=== PATIENT | female | born 1945 | race Caucasian/White ===

== ENCOUNTER → 2024-09-08 | Outpatient (CLI) | payer MEDICARE, BC, SELFPAY ==
--- NOTE | 2024-09-08 11:42 | EKG_ITS ---
[facility] Test Date: 2024-09-08 Pat Name: JOSSELYN MARSHALL Department: Room: - Gender: Female Assistant Restaurant General Manager: RTSJC : 1945 Requested By: Freddy Ahmadi Order Number: [id number] Reading MD: Freddy Ahmadi Measurements Intervals [place] Rate: 69 P: 112 AK: 198 QRS: -32 QRSD: 104 T: 71 QT: 360 QTc: 388 Interpretive Statements ELECTRONIC ATRIAL PACEMAKER MARKED LEFT AXIS DEVIATION LOW QRS VOLTAGE IN PRECORDIAL LEADS VOLTAGE CRITERIA FOR LVH NONSPECIFIC T-WAVE ABNORMALITY Compared to ECG 03/11/2024 16:49:55 Left-axis deviation now present Low QRS voltage now present Left ventricular hypertrophy now present T-wave abnormality now present Ventricular-paced complex(es) or rhythm no longer present /store/S0/[id number]/ecg/[id number].pdf
== END | disposition home or self-care (01) ==
LOC: COPL 10:35
PROVIDERS: PCP Family Medicine; Referring Provider Student in an Organized Health Care Education/Training Program; Visit Provider Student in an Organized Health Care Education/Training Program
DX: Z01.818 Encounter for other preprocedural examination (principal); H25.812 Combined forms of age-related cataract, left eye
CPT/HCPCS: 82947; 93005

== ENCOUNTER → 2024-09-09 | Outpatient (CLI) | payer MEDICARE, BC, SELFPAY ==
[2024-09-09 09:28] LABS: Glucose,Fasting 101 mg/dL (74-106)
== END | disposition home or self-care (01) ==
LOC: COPL 08:35
PROVIDERS: PCP Family Medicine; Referring Provider Student in an Organized Health Care Education/Training Program; Visit Provider Student in an Organized Health Care Education/Training Program
DX: Z01.818 Encounter for other preprocedural examination (principal); H25.812 Combined forms of age-related cataract, left eye
CPT/HCPCS: 36415; 82947

== ENCOUNTER → 2024-09-22 | Outpatient (CLI) | payer MEDICARE, BC, SELFPAY ==
--- NOTE | 2024-09-22 09:45 | XR_ITS ---
Examination: Bilateral hips, AP pelvis, 5 views Technique: AP, lateral views both hips, AP pelvis, 5 views Exam date and time: September 22, 2024 0953 hrs. Indications: Right hip pain beginning 3 weeks ago Findings: Moderate osteopenia No right hip fracture or hip dislocation Bilateral moderate narrowing hip joints Bones of the pelvis intact Impression: Bilateral moderate hip osteoarthritis Incidental note advanced degenerative disc disease L3-L4, L4-L5, L5-S1
== END | disposition home or self-care (01) ==
PROVIDERS: PCP Nurse Practitioner Family; Referring Provider Physician Assistant; Visit Provider Physician Assistant
DX: M16.0 Bilateral primary osteoarthritis of hip (principal); M51.369 Other intervertebral disc degeneration, lumbar region without mention of lumbar back pain or lower extremity pain; M51.379 Other intervertebral disc degeneration, lumbosacral region without mention of lumbar back pain or lower extremity pain
CPT/HCPCS: 73523

== ENCOUNTER → 2024-10-16 | Outpatient (CLI) | payer MEDICARE, BC, SELFPAY ==
[2024-10-16 10:09] LABS: Collection Type, Urine Clean Catch
[2024-10-16 10:32] LABS: Basophils % (Auto) 1 % (0-2.5); Eosinophils # (Auto) 0.1 Thou/mm3 (0.0-0.5); Eosinophils % (Auto) 2 % (0-10); Hematocrit 45.1 % (36.0-46.0); Hemoglobin 14.8 g/dL (12.0-16.0); Immature Granulocytes % (Auto) 0 % (0-0); Immature Granulocytes Auto 0.01 Thou/mm3 (0.00-0.00); Lymphocytes # (Auto) 0.9 Thou/mm3 (1.0-4.8); Lymphocytes % (Auto) 20 % (10-50); Mean Corpuscular HGB Conc 32.8 g/dl (31.0-37.0); Mean Corpuscular Hemoglobin 29.5 pg (25.0-35.0); Mean Corpuscular Volume 90 fL (80-100); Monocytes # (Auto) 0.4 Thou/mm3 (0.0-0.8); Monocytes % (Auto) 9 % (0-12); Neutrophils # (Auto) 3.2 Thou/mm3 (1.8-7.7); Neutrophils % (Auto) 69 % (37-80); Nucleated Red Blood Cell % 0 /100 WBC (0); Platelet Count 182 Thou/mm3 (140-440); RDW Standard Deviation 47.7 fL (36.4-46.3); Red Blood Count 5.02 Miln/mm3 (4.00-5.20); White Blood Count 4.6 Thou/mm3 (3.6-11.0)
[2024-10-16 10:44] LABS: Bilirubin,Urine Negative (Negative); Blood,Urine Negative (Negative); Clarity,Urine Clear (Clear/Hazy); Color,Urine Yellow (Lt Yel-Yel); Culture Indicated,Urine Not Indicated; Glucose, Urine Negative (Negative); Hyaline Casts,Urine 1 /hpf (0-1); Ketones,Urine Negative (Negative); Leukocyte Esterase,Urine Negative (Negative); Nitrite,Urine Negative (Negative); Protein,Urine 1+ (Neg - Trace); RBC,Urine 2 /hpf (0-3); Specific Gravity,Urine 1.028 (1.001-1.035); Squamous Epithelial Cell,Urine 3 /hpf (0-5); Urobilinogen,Urine Negative mg/dL (0.0-1.0); WBC,Urine 2 /hpf (0-5)
[2024-10-16 10:51] LABS: Alanine Aminotransferase 67 U/L (10-49); Albumin, Serum 4.9 gm/dL (3.4-4.8); Alkaline Phosphatase 89 U/L (46-116); Anion Gap 9 (7-16); Aspartate Amino Transferase 49 U/L (0-34); BUN/Creatinine Ratio 23 Ratio (12-20); Bilirubin,Direct 0.4 mg/dL (0.0-0.3); Bilirubin,Total 1.2 mg/dL (0.3-1.2); Blood Urea Nitrogen 27 mg/dL (9-23); Calcium 9.8 mg/dL (8.3-10.6); Carbon Dioxide 28.7 mMol/L (20.0-31.0); Cardiac Risk Estimate 1.9 RATIO (3.7-5.6); Chloride 103 mMol/L (98-107); Cholesterol 154 mg/dL (132-200); Creatinine (Component) 1.2 mg/dL (0.6-1.3); Free T4 (Free Thyroxine) 1.18 ng/dL (0.89-1.76); Glucose 97 mg/dL (74-106); HDL Cholesterol 83 mg/dL (40-60); LDL Cholesterol,Calculated 54 mg/dL (0-130); Osmolality,Calculated 286 (275-295); Phosphorous 3.6 mg/dL (2.4-5.1); Potassium 4.2 mMol/L (3.4-5.1); Sodium 141 mMol/L (136-145); Thyroid Stimulating Hormone 4.58 uIU/mL (0.55-4.78); Total Protein 7.3 gm/dL (5.7-8.2); Triglycerides 86 mg/dL (30-150); eGFR 46 See Note
[2024-10-16 10:58] LABS: Parathyroid Hormone Intact 91.5 pg/ml (18.5-88.0)
[2024-10-17 18:56] LABS: Vitamin B12 475 pg/mL (211-911)
== END | disposition home or self-care (01) ==
LOC: COPL 09:38
PROVIDERS: PCP Family Medicine; Referring Provider Internal Medicine Nephrology; Visit Provider Internal Medicine Nephrology
DX: N18.30 Chronic kidney disease, stage 3 unspecified (principal); R94.5 Abnormal results of liver function studies; E78.00 Pure hypercholesterolemia, unspecified; E07.9 Disorder of thyroid, unspecified; E55.9 Vitamin D deficiency, unspecified
CPT/HCPCS: 36415; 80048; 80061; 80076; 81001; 82306; 82607; 83970; 84100; 84439; 84443; 85025

== ENCOUNTER → 2025-02-17 | Outpatient (CLI) | payer MEDICARE, BC, SELFPAY ==
--- NOTE | 2025-02-17 | XR_ITS ---
Examination: Duplex scan of the lower extremity, unilateral right complete Date and time of exam: February 17, 2025 0906 hours INDICATIONS: Patient fell 3 weeks ago followed by leg pain and swelling on the right Technique: Duplex scan of the extremity veins using B-mode/grayscale imaging and Doppler spectral analysis and color flow Attention is directed to internal echogenicity, compression and augmentation involving these veins, color flow assessment, spectral analysis Findings: Major deep venous structures in the extremity demonstrate normal course and caliber. There is no evidence of deep vein thrombosis. Normal color flow and spectral analysis Right popliteal cyst 33 mm Impression: Negative for DVT..
--- NOTE | 2025-02-17 | XR_ITS ---
EXAMINATION: Ankle, right 3 views . Technique: Ankle AP, oblique, lateral 3 views Date and time of exam: February 09, 2025 0811 hours INDICATIONS: Patient fell 3 weeks ago with injury to the ankle, ankle pain. FINDINGS: Lateral malleolar soft tissue swelling No fracture or dislocation Plantar posterior bony calcaneal spurs with ossification in the plantar fascia IMPRESSION: No acute fracture
--- NOTE | 2025-02-17 | XR_ITS ---
Examination: Knee, right , 3 views Technique: Knee AP, lateral, oblique 3 views Date and time of exam: February 17, 2025 0811 hours INDICATIONS: Patient fell 3 weeks ago with injury to the knee, knee pain. FINDINGS: Severe osteopenia Advanced tricompartment osteoarthritis No acute fracture Moderate knee effusion IMPRESSION: No acute fracture
--- NOTE | 2025-02-17 | XR_ITS ---
Examination: Foot, right, 3 views Technique: AP, oblique, lateral views foot, 3 views Date and time of exam: February 09, 2025 0811 hours INDICATIONS: Patient fell 3 weeks ago with injury to the foot, foot pain FINDINGS: No acute fracture Plantar posterior bony calcaneal spurs Ossification in the plantar fascia IMPRESSION: No acute fracture
== END | disposition home or self-care (01) ==
LOC: CDIM 07:49
PROVIDERS: PCP Nurse Practitioner Family; Referring Provider Nurse Practitioner Family; Visit Provider Nurse Practitioner Family
DX: S89.91XA Unspecified injury of right lower leg, initial encounter (principal); S99.911A Unspecified injury of right ankle, initial encounter; S99.921A Unspecified injury of right foot, initial encounter; W19.XXXA Unspecified fall, initial encounter
CPT/HCPCS: 73562; 73610; 73630; 93971

== ENCOUNTER → 2025-05-10 | Outpatient (CLI) | payer MEDICARE, BC, SELFPAY ==
--- NOTE | 2025-05-10 | XR_ITS ---
Examination: PA lateral chest 2 views TECHNIQUE: Upright PA lateral chest 2 views Date and time: May 10, 2025 1310 hours INDICATIONS: Chronic short segment tear FINDINGS: Minor prominence left ventricle Ectatic thoracic aorta. Cardiac leads satisfactory position. No pneumonia or pulmonary edema IMPRESSION: No pneumonia or pulmonary edema Prominent osteopenia
--- NOTE | 2025-05-10 | XR_ITS ---
Examination: Wrist, right 3 views Technique: Wrist AP, oblique, lateral 3 views Date and time of exam: May 10, 2025 1259 hours INDICATIONS: Patient fell 3 months ago with intravenous, persistent wrist pain. FINDINGS: Severe osteopenia. Moderate osteoarthritis first carpometacarpal joint No fracture or dislocation. No erosive arthritis IMPRESSION: No fracture or dislocation
--- NOTE | 2025-05-10 | XR_ITS ---
Examination: Right elbow 2 views Technique one AP lateral right elbow 2 views Date and time: May 10, 2025 1306 hours INDICATIONS: Patient fell 3 months ago with injury to the elbow, elbow pain. FINDINGS: Severe osteopenia No acute fracture 8mm bony olecranon spur Ossification which may be in the triceps insertion IMPRESSION: No acute fracture.
--- NOTE | 2025-05-10 | XR_ITS ---
Examination: Hand, right 3 views Technique: Hand AP, oblique, lateral 3 views Date and time of exam: May 10, 2025 1259 hours INDICATIONS: Patient fell 3 months ago with injury to the hand, persistent hand pain. FINDINGS: Severe osteopenia. No acute fracture Moderate arthritic change first metacarpophalangeal joint, first carpometacarpal joint and milder arthritic change distal interphalangeal joints No foreign body No cortical bone destruction IMPRESSION: No fractures Arthritic change as above
[2025-05-10 13:13] LABS: Basophils # (Auto) 0.0 Thou/mm3 (0.0-0.2); Basophils % (Auto) 1 % (0-2.5); Eosinophils # (Auto) 0.1 Thou/mm3 (0.0-0.5); Eosinophils % (Auto) 2 % (0-10); Hematocrit 45.3 % (36.0-46.0); Hemoglobin 14.9 g/dL (12.0-16.0); Immature Granulocytes Auto 0.04 Thou/mm3 (0.00-0.00); Lymphocytes # (Auto) 1.0 Thou/mm3 (1.0-4.8); Lymphocytes % (Auto) 19 % (10-50); Mean Corpuscular HGB Conc 32.9 g/dl (31.0-37.0); Mean Corpuscular Hemoglobin 30.0 pg (25.0-35.0); Mean Corpuscular Volume 91 fL (80-100); Monocytes # (Auto) 0.4 Thou/mm3 (0.0-0.8); Monocytes % (Auto) 8 % (0-12); Neutrophils # (Auto) 3.7 Thou/mm3 (1.8-7.7); Neutrophils % (Auto) 70 % (37-80); Nucleated Red Blood Cell # 0.00 Thou/mm3 (0.00-0.00); Nucleated Red Blood Cell % 0 /100 WBC (0); Platelet Count 195 Thou/mm3 (140-440); RDW Standard Deviation 48.1 fL (36.4-46.3); Red Blood Count 4.97 Miln/mm3 (4.00-5.20); White Blood Count 5.2 Thou/mm3 (3.6-11.0)
[2025-05-10 13:24] LABS: Parathyroid Hormone Intact 118.6 pg/ml (18.5-88.0)
[2025-05-10 13:29] LABS: Alanine Aminotransferase 37 U/L (10-49); Albumin, Serum 4.5 gm/dL (3.4-4.8); Albumin/Globulin Ratio 1.9 (1.2-2.2); Alkaline Phosphatase 76 U/L (46-116); Anion Gap 11 (7-16); Aspartate Amino Transferase 32 U/L (0-34); BUN/Creatinine Ratio 15 Ratio (12-20); Bilirubin,Direct 0.3 mg/dL (0.0-0.3); Bilirubin,Total 1.0 mg/dL (0.3-1.2); Blood Urea Nitrogen 17 mg/dL (9-23); Calcium 9.8 mg/dL (8.3-10.6); Calcium (Corrected) 9.8 mg/dL (8.5-10.1); Carbon Dioxide 27.3 mMol/L (20.0-31.0); Cardiac Risk Estimate 1.9 RATIO (3.7-5.6); Chloride 103 mMol/L (98-107); Cholesterol 142 mg/dL (132-200); Creatinine (Component) 1.1 mg/dL (0.6-1.3); Globulin 2.4 gm/dL (2.3-3.5); Glucose 104 mg/dL (74-106); HDL Cholesterol 75 mg/dL (40-60); LDL Cholesterol,Calculated 46 mg/dL (0-130); Osmolality,Calculated 282 (275-295); Phosphorous 3.5 mg/dL (2.4-5.1); Potassium 3.7 mMol/L (3.4-5.1); Sodium 141 mMol/L (136-145); Total Protein 6.9 gm/dL (5.7-8.2); Triglycerides 104 mg/dL (30-150); eGFR 51 See Note
[2025-05-10 13:36] LABS: Ferritin 39 ng/mL (7.3-270.7); Iron 106 mcg/dL (50-170); Percent Iron Saturation 29 % (20-55); Total Iron Binding Capacity 362 mcg/dL (250-425); Unsaturated Iron Binding 256 (225-295)
[2025-05-10 13:39] LABS: Folate > 24.00 ng/mL (>5.38); Vitamin B12 693 pg/mL (211-911); Vitamin D 25 Hydroxy Total 39.4 ng/mL (7.3-40.2)
[2025-05-10 14:10] LABS: Collection Type, Urine Clean Catch
[2025-05-10 14:27] LABS: Glucose Estimated Average 128 mg/dL (80-131); Hemoglobin A1C 6.1 % Hgb (4.8-6.0)
[2025-05-10 14:37] LABS: Bilirubin,Urine Negative (Negative); Blood,Urine Negative (Negative); Clarity,Urine Clear (Clear/Hazy); Color,Urine Yellow (Lt Yel-Yel); Culture Indicated,Urine Not Indicated; Glucose, Urine Negative (Negative); Hyaline Casts,Urine 1 /hpf (0-1); Ketones,Urine Negative (Negative); Leukocyte Esterase,Urine Positive (Negative); Nitrite,Urine Negative (Negative); PH,Urine 6.0 (5.0-7.0); Protein,Urine Trace (Neg - Trace); RBC,Urine 1 /hpf (0-3); Specific Gravity,Urine 1.025 (1.001-1.035); Squamous Epithelial Cell,Urine 5 /hpf (0-5); Urobilinogen,Urine Negative mg/dL (0.0-1.0); WBC,Urine 4 /hpf (0-5)
[2025-05-17 06:59] LABS: Direct LDL* 59 mg/dL (<100)
== END | disposition home or self-care (01) ==
PROVIDERS: Nurse Practitioner Family; PCP Family Medicine; Referring Provider Internal Medicine Nephrology; Visit Provider Radiology Diagnostic Radiology
DX: S69.91XA Unspecified injury of right wrist, hand and finger(s), initial encounter (principal); S59.901A Unspecified injury of right elbow, initial encounter; W18.30XA Fall on same level, unspecified, initial encounter; R06.02 Shortness of breath; E78.2 Mixed hyperlipidemia; Z13.1 Encounter for screening for diabetes mellitus; E21.3 Hyperparathyroidism, unspecified; R53.81 Other malaise; R53.83 Other fatigue; R53.1 Weakness; N18.30 Chronic kidney disease, stage 3 unspecified; N39.0 Urinary tract infection, site not specified; R94.5 Abnormal results of liver function studies; M85.80 Other specified disorders of bone density and structure, unspecified site
CPT/HCPCS: 36415; 71046; 73070; 73110; 73130; 80053; 80061; 81001; 82248; 82306; 82607; 82728; 82746; 83036; 83540; 83550; 83721; 83970; 84100; 85025

== ENCOUNTER 2025-05-13 09:00 | Outpatient (AMB) | payer MEDICARE, BC, SELFPAY ==
[2025-05-13 09:23] VITALS: BP 131/85; PULSE 74; RESP 18; TEMP 36.5; O2SAT 90; BMI 39.8
--- NOTE | 2025-05-13 09:23 | ORTHONT_ITS ---
Vital signs 05/13/25 09:23 Height 1.63 m Height Method Stated Weight 105.318 kg Weight Measurement Method Standing Scale BMI 39.8 BP 131/85 H Blood Pressure Source Automatic Cuff Blood Pressure Location Left Upper Arm Position Sitting Respiration 18 Pulse 74 Pulse Source Monitor Temp 97.7 F Temp Source Temporal Artery Scan Pulse Oximetry (%) 90 L Oxygen Delivery Method Room Air Med/Allergies Allergies & Medications Allergies erythromycin base Allergy (Severe, Verified 05/13/25 09:24) Rash penicillin G benzathine (From Bicillin C-R) Allergy (Severe, Verified 05/13/25 09:24) Hives penicillin G procaine (From Bicillin C-R) Allergy (Severe, Verified 05/13/25 09:24) Hives Penicillins Allergy (Severe, Verified 05/13/25 09:24) Rash, Swelling, Difficulty breathing perfume Allergy (Severe, Verified 05/13/25 09:24) Difficulty Breathing aspirin Adverse Reaction (Severe, Verified 05/13/25 09:24) Rash doxycycline Adverse Reaction (Severe, Verified 05/13/25 09:24) Rash naproxen Adverse Reaction (Severe, Verified 05/13/25 09:24) Rash tetracycline Adverse Reaction (Severe, Verified 05/13/25 09:24) Rash Medication Reconciliation albuterol sulfate 90 mcg/actuation aerosol inhaler (ProAir HFA) 2 puff inhalation QID PRN Respiratory Distress ##0 10/26/13 [History Confirmed 05/13/25] montelukast 10 mg tablet (Singulair) 10 mg feeding tube QDAY Allergies #0 tabs 10/26/13 [History Confirmed 05/13/25] amiodarone 200 mg tablet 200 mg PO BID #60 tabs 12/21/19 [Rx Confirmed 05/13/25] pantoprazole 40 mg tablet,delayed release 40 mg PO QDAY #30 tabs 12/21/19 [Rx Confirmed 05/13/25] apixaban 2.5 mg tablet (Eliquis) 2.5 mg feeding tube BID 01/03/20 [History Confirmed 05/13/25] Held on 03/14/24. Instructions: Resume on 03/16/24. atorvastatin 40 mg tablet 40 mg PO QPM 10/09/21 [History Confirmed 05/13/25] fluticasone 100 mcg-salmeterol 50 mcg/dose blistr powdr for inhalation (Piero Inhub) 1 ea inhalation BID 05/02/22 [History Confirmed 05/13/25] nifedipine 30 mg tablet,extended release 1 tab PO BID 05/02/22 [History Confirmed 05/13/25] potassium chloride 10 mEq tablet,extended release (Klor-Con) 1 tab PO QDAY 05/02/22 [History Confirmed 05/13/25] bumetanide 1 mg tablet 1 mg PO BID 10/14/23 [History Confirmed 05/13/25] Exam Exam Breathing is nonlabored. Patient has a normal mood and affect. Bilateral extremities were evaluated and demonstrates sensation intact to light touch. Palpable pedal pulses are present. No significant edema is present. Bilateral hips were examined. The patient has no pain with log roll of the hips. Internal rotation to 30 degrees and external rotation to 30 degrees is painless. Negative FADIR. Left knee was examined today. The left knee is in reasonable alignment. Range of motion from 0-120 degrees. Knee is stable to varus and valgus as well as AP translation with <5mm. Patient has a negative McMurrays. There is no pain with patellofemoral compression and no crepitus noted. The knee is nontender to palpation. The right knee was also examined. The right knee is in varus alignment. Range of motion from 0-115 degrees. Knee is stable to varus and valgus as well as AP comer slation with <5mm. Patient has a negative McMurrays. There is no pain with patellofemoral compression and no crepitus noted. The knee is tender to palpation medially. X-rays demonstrate complete obliteration of the medial and lateral joint space of the right knee Assessment and Plan Problem List (1) Degenerative arthritis of knee, bilateral: Status: Acute Plan: Patient is a pleasant 79-year-old female with bilateral knee pain and bilateral knee arthritis. We discussed different treatment options. I would recommend a total knee replacement as a surgical option. We also discussed nonsurgical options and she would like to consider nonsurgical treatment at this time. Recommend knee cortisone injection as patient would like to proceed with conservative treatment at this time. The risks and benefits of the procedure were reviewed with the patient and patient gave verbal consent to continue with the procedure. Procedure: performed by Dr. Mclean Using sterile technique the Right knee was thoroughly prepped with alcohol, and approximately 1 cc of Depo-Medrol 80mg/mL and 4 cc of 0.2% ropivacaine was injected without resistance into the medial tibial femoral joint space. The patient tolerated the procedure. 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 Administered by: Martín Mclean MD on 05/13/25 09:53 Dose Route Admin Location Dispensed Lot Number Expiration Date [facility] Planning Director 80 mg intra-articular 1 mL [id number] 02/19/27 [address]-3 [facility] ropivacaine (PF) 2 mg/mL (0.2 %) injection solution Performing Provider: Martín Mclean MD Performing Location: [facility] Administered by: Martín Mclean MD on 05/13/25 09:53 Dose Route Admin Location Dispensed Lot Number Expiration Date [facility] Planning Director 20 mL Infiltration 20 mL [id number] 08/22/26 18997-445-70 [facility] Intake Visit Data Collection New Patient or Established: Established Patient (seen at [facility] within 3 years) Reason for Visit:: RIGHT KNEE OA Seen by Clinical Staff ONLY (RN/MA): No PCP or OBGYN visit in last 3 months: Yes Hx Now: No Do You Feel Safe at Home: Yes Authorities Contacted: N/A Questionairres Past Medical History Past Medical History Have you ever been diagnosed with any of the following: Neurological Problems Cerebrovascular Accident (CVA): Yes Seizures: Yes () Migraine: No Cardiology Problems Atrial Fibrillation: Yes Hypercholesterolemia: Yes Congestive Heart Failure: No Edema: Yes Hypertension: Yes Respiratory Problems Chronic Obstructive Pulmonary Disease (COPD): No Asthma: Yes Tuberculosis: No Sleep Apnea: Yes Smoking: No Smoking Cessation Counseling: No Smoking Exposure: No Stomache/Intestinal Problems Hemorrhoids: Yes Gastroesophageal Reflux Disease: Yes Obesity: Yes Genital/Urinary Problems Renal Disease: No Musculoskeletal Problems Arthritis: Yes Head,Eye,Nose,Throat Problems Cataracts: Yes Endocrine Problems Diabetes Mellitus Type 1: No Diabetes Mellitus Type 2: No Blood Problems Anemia: No Sickle Cell Disease: No Clotting Problems: No Psychologic Problems Anxiety: Yes Other Problems Falls: No Blood Transfusions: No Blood Transfusion Reaction: No Anesthesia Reactions: No Vancomycin-Resistant Enterococci: Yes Cancer: No Surgical History Hysterectomy: Yes Pacemaker: Yes Subjective Visit Visit for: new patient and knee (RIGHT) Immunization / Flu Flu Vaccine in the Last 12 Months: No Flu Vaccine Exclusion Criteria: No Exclusion Criteria History of Present Illness Chief complaint: RIGHT KNEE OA Date of injury / onset of symptoms: NOVEMBER 2024/JANUARY 2025 Patient Is a pleasant 79-year-old female with right knee pain and right knee arthritis. Has [id number] arthritis. She has not had any injections like cortisone injection right knee today. She was told she needed a knee replacement. She had a prior stroke and had a PEG tube. This was never removed. Personal History Occupation: RETIRED Red flag PMH: none BMI Counceling provided: Yes Pain Pain level (0-10): 8 Pain location: anterior Pain quality: dull Pain timing: night, increases with activity and stairs Ambulatory data Ambulatory device: cane Treatments Number of previous injections: 0 Improvement with previous injections: No Improvement with PT: No Improvement with NSAIDS: no Review of Systems Review of Systems: All systems negative unless otherwise noted in HPI.
--- NOTE | 2025-05-13 09:42 | XR_ITS ---
Examination: Bilateral knees 2 views Right lateral knee left lateral knee 2 views Bilateral axial knees single view TECHNIQUE: Bilateral AP knees standing single view, bilateral PA knees standing single view flexion Standing right lateral knee left lateral knee 2 views Bilateral axial knees single view total 5 views Date and time: May 13, 2025 1007 hours INDICATIONS: Bilateral knee pain several years. FINDINGS: Severe osteopenia Severe bilateral tricompartment osteoarthritis including [id number] narrowing medial joint space right knee No fractures Bilateral small knee effusions IMPRESSION: Severe bilateral tricompartment osteoarthritis
== END 2025-05-13 09:52 | disposition home or self-care (01) ==
PROVIDERS: PCP Nurse Practitioner Family; Referring Provider Nurse Practitioner Family; Supervising Provider Orthopaedic Surgery Adult Reconstructive Orthopaedic Surgery; Visit Provider Orthopaedic Surgery Adult Reconstructive Orthopaedic Surgery
DX: M17.0 Bilateral primary osteoarthritis of knee (principal); M25.562 Pain in left knee; M25.561 Pain in right knee; I10 Essential (primary) hypertension; E78.00 Pure hypercholesterolemia, unspecified; Z86.73 Personal history of transient ischemic attack (TIA), and cerebral infarction without residual deficits; I48.91 Unspecified atrial fibrillation; K21.9 Gastro-esophageal reflux disease without esophagitis; E66.9 Obesity, unspecified; Z71.3 Dietary counseling and surveillance; Z68.39 Body mass index [BMI] 39.0-39.9, adult
CPT/HCPCS: 20610; 73564; 99204; J1010; J2795; G0463

== ENCOUNTER → 2025-06-16 | Outpatient (CLI) | payer MEDICARE, BC, SELFPAY ==
[2025-06-16 11:26] VITALS: PULSE 71
[2025-06-16] MEDS: ALBUTEROL RT 2.5 MG/3 ML NEBU INH (11:26)
[2025-06-16 11:27] VITALS: PULSE 60; PULSE 71; RESP 18; O2SAT 97
== END | disposition home or self-care (01) ==
LOC: SRTX 09:43
PROVIDERS: Referring Provider Internal Medicine Cardiovascular Disease; Visit Provider Internal Medicine Cardiovascular Disease
DX: J44.9 Chronic obstructive pulmonary disease, unspecified (principal)
CPT/HCPCS: 94060; 94640; 94726; 94729

== ENCOUNTER 2025-08-13 09:44 | Outpatient (AMB) | payer MEDICARE, BC, SELFPAY ==
--- NOTE | 2025-08-13 10:43 | ORTHONT_ITS ---
Med/Allergies Allergies & Medications Allergies erythromycin base Allergy (Severe, Verified 05/13/25 09:24) Rash penicillin G benzathine (From Bicillin C-R) Allergy (Severe, Verified 05/13/25 09:24) Hives penicillin G procaine (From Bicillin C-R) Allergy (Severe, Verified 05/13/25 09:24) Hives Penicillins Allergy (Severe, Verified 05/13/25 09:24) Rash, Swelling, Difficulty breathing perfume Allergy (Severe, Verified 05/13/25 09:24) Difficulty Breathing aspirin Adverse Reaction (Severe, Verified 05/13/25 09:24) Rash doxycycline Adverse Reaction (Severe, Verified 05/13/25 09:24) Rash naproxen Adverse Reaction (Severe, Verified 05/13/25 09:24) Rash tetracycline Adverse Reaction (Severe, Verified 05/13/25 09:24) Rash Exam Exam Breathing is nonlabored. Patient has a normal mood and affect. Bilateral extremities were evaluated and demonstrates sensation intact to light touch. Palpable pedal pulses are present. No significant edema is present. Bilateral hips were examined. The patient has no pain with log roll of the hips. Internal rotation to 30 degrees and external rotation to 30 degrees is painless. Negative FADIR. Left knee was examined today. The left knee is in reasonable alignment. Range of motion from 0-120 degrees. Knee is stable to varus and valgus as well as AP translation with <5mm. Patient has a negative McMurrays. There is no pain with patellofemoral compression and no crepitus noted. The knee is nontender to palpation. The right knee was also examined. The right knee is in varus alignment. Range of motion from 0-115 degrees. Knee is stable to varus and valgus as well as AP translation with <5mm. Patient has a negative McMurrays. There is no pain with patellofemoral compression and no crepitus noted. The knee is tender to palpation medially. X-rays demonstrate complete obliteration of the medial and lateral joint space of the right knee Assessment and Plan Problem List (1) Degenerative arthritis of knee, bilateral: Status: Acute Plan: Patient is a pleasant 79-year-old female with bilateral knee pain and bilateral knee arthritis. We discussed different treatment options. I would recommend a total knee replacement as a surgical option. The nature and purpose of the total knee replacement, alternative method(s) of treatment, the material risks involved, and the possibility of complications were fully explained to the patient. The patient does NOT have any of the following contraindications to TKA: - Active infection of the knee joint, OR - Active systemic bacteremia, OR - Active skin infection or open wound at surgical site, OR - Neuropathic arthritis, OR - Severe, rapidly progressive neurological disease, OR - Severe medical condition that makes risks of surgery outweigh the potential benefit. ?The patient was told the most common risks and complications associated with a total knee replacement include, but are not limited to: blood clots in the leg, stiffness, fatal pulmonary embolism, dislocation of the prosthesis, intraoperative and postoperative fractures of the femur or tibia, infection, failure of the prosthesis or grafting materials, complications from anesthesia, reactions to blood transfusions, postoperative leg length inequality, instability of the knee replacement, nerve damage or injury, vascular injury, delayed wound healing, infection, other injury or even . In addition, there are risks associated with anesthesia given during this operation. Also, the patient was told that after undergoing a total knee replacement there may still be persistent pain or disability. The patient was informed that the success of this operation in part depends upon the mechanical devices which are going to be implanted and that these devices can fail or malfunction, and may need to be repaired or replaced and there are no guarantees as to the longevity of this device or its parts and that it or its parts could fail prematurely. The importance of compliance with physical therapy was also discussed with the patient. The patient was also notified that during the course of surgery, there may be a need to use bone graft from donors, and that any bone graft used will be carefully screened for communicable diseases, including AIDS, hepat itis, Jeison-Creutzfeldt, or other diseases, but despite the screening procedures, there is a small chance that they could contract one of these diseases. Finally, the patient was asked to follow completely and fully with all advice and recommended treatments, and that recovery and ultimate outcome are affected by their compliance with recommended treatment. We discussed the risks, benefits and treatment alternatives, and the patient is interested in proceeding with surgery. We will try to set this up as expeditiously as possible. Advanced Care Planning Discussion Advance care planning discussed with:: patient Questionairres Past Medical History Past Medical History Have you ever been diagnosed with any of the following: Neurological Problems Cerebrovascular Accident (CVA): Yes Seizures: Yes () Migraine: No Cardiology Problems Atrial Fibrillation: Yes Hypercholesterolemia: Yes Congestive Heart Failure: No Edema: Yes Hypertension: Yes Respiratory Problems Chronic Obstructive Pulmonary Disease (COPD): No Asthma: Yes Tuberculosis: No Sleep Apnea: Yes Smoking: No Smoking Cessation Counseling: No Smoking Exposure: No Stomache/Intestinal Problems Hemorrhoids: Yes Gastroesophageal Reflux Disease: Yes Obesity: Yes Genital/Urinary Problems Renal Disease: No Musculoskeletal Problems Arthritis: Yes Head,Eye,Nose,Throat Problems Cataracts: Yes Endocrine Problems Diabetes Mellitus Type 1: No Diabetes Mellitus Type 2: No Blood Problems Anemia: No Sickle Cell Disease: No Clotting Problems: No Psychologic Problems Anxiety: Yes Other Problems Falls: No Blood Transfusions: No Blood Transfusion Reaction: No Anesthesia Reactions: No Vancomycin-Resistant Enterococci: Yes Cancer: No Surgical History Hysterectomy: Yes Pacemaker: Yes Subjective Visit Visit for: new patient and knee (RIGHT) Immunization / Flu Flu Vaccine in the Last 12 Months: No Flu Vaccine Exclusion Criteria: No Exclusion Criteria History of Present Illness Chief complaint: RIGHT KNEE OA Date of injury / onset of symptoms: NOVEMBER 2024/JANUARY 2025 Patient Is a pleasant 79-year-old female with right knee pain and right knee arthritis. Has enfq-ho-clfu arthritis. She has not had any injections like cortisone injection right knee today. She was told she needed a knee replacement. She had a prior stroke and had a PEG tube. This was never removed. The injection did not work for very long. It worked for less than 3 months. Her GI doctor recommended that we do the surgery without removing the PEG as it would be very difficult for her to get another one She has a pacemake and lives alone. She is on eliquis as well. Personal History Occupation: RETIRED Red flag PMH: none BMI Counceling provided: Yes Pain Pain level (0-10): 8 Pain location: anterior Pain quality: dull Pain timing: night, increases with activity and stairs Ambulatory data Ambulatory device: cane Treatments Number of previous injections: 0 Improvement with previous injections: No Improvement with PT: No Improvement with NSAIDS: no Review of Systems Review of Systems: All systems negative unless otherwise noted in HPI.
--- NOTE | 2025-08-13 10:49 | PD.ORTHCLVIS ---
Vital signs 08/13/25 10:52 Height 1.63 m Height Method Stated Weight 109.344 kg Weight Measurement Method Standing Scale BMI 41.1 BP 123/84 Blood Pressure Source Automatic Cuff Blood Pressure Location Left Upper Arm Position Sitting Respiration 18 Pulse 79 Pulse Source Monitor Temp 97.4 F Temp Source Temporal Artery Scan Pulse Oximetry (%) 91 L Oxygen Delivery Method Room Air Med/Allergies Allergies & Medications Allergies erythromycin base Allergy (Severe, Verified 08/13/25 10:52) Rash penicillin G benzathine (From Bicillin C-R) Allergy (Severe, Verified 08/13/25 10:52) Hives penicillin G procaine (From Bicillin C-R) Allergy (Severe, Verified 08/13/25 10:52) Hives Penicillins Allergy (Severe, Verified 08/13/25 10:52) Rash, Swelling, Difficulty breathing perfume Allergy (Severe, Verified 08/13/25 10:52) Difficulty Breathing aspirin Adverse Reaction (Severe, Verified 08/13/25 10:52) Rash doxycycline Adverse Reaction (Severe, Verified 08/13/25 10:52) Rash naproxen Adverse Reaction (Severe, Verified 08/13/25 10:52) Rash tetracycline Adverse Reaction (Severe, Verified 08/13/25 10:52) Rash Medication Reconciliation albuterol sulfate 90 mcg/actuation aerosol inhaler (ProAir HFA) 2 puff inhalation QID PRN Respiratory Distress ##0 10/26/13 [History Confirmed 08/13/25] montelukast 10 mg tablet (Singulair) 10 mg feeding tube QDAY Allergies #0 tabs 10/26/13 [History Confirmed 08/13/25] amiodarone 200 mg tablet 200 mg PO BID #60 tabs 12/21/19 [Rx Confirmed 08/13/25] pantoprazole 40 mg tablet,delayed release 40 mg PO QDAY #30 tabs 12/21/19 [Rx Confirmed 08/13/25] apixaban 2.5 mg tablet (Eliquis) 2.5 mg feeding tube BID 01/03/20 [History Confirmed 08/13/25] Held on 03/14/24. Instructions: Resume on 03/16/24. atorvastatin 40 mg tablet 40 mg PO QPM 10/09/21 [History Confirmed 08/13/25] fluticasone 100 mcg-salmeterol 50 mcg/dose blistr powdr for inhalation (Piero Inhub) 1 ea inhalation BID 05/02/22 [History Confirmed 08/13/25] nifedipine 30 mg tablet,extended release 1 tab PO BID 05/02/22 [History Confirmed 08/13/25] potassium chloride 10 mEq tablet,extended release (Klor-Con) 1 tab PO QDAY 05/02/22 [History Confirmed 08/13/25] bumetanide 1 mg tablet 1 mg PO BID 10/14/23 [History Confirmed 08/13/25] Assessment and Plan Problem List (1) Degenerative arthritis of knee, bilateral: Status: Acute Advanced Care Planning Discussion Advance care planning discussed with:: patient Office Procedures GNS Level of Care Nursing/Assessment Patient Status: Established Patient Nursing Assessment/Reassesment: Medication Reconciliation, Update PMH in EMR and Vital Signs Coordination of Care: Complex Care and Chronic Disease 1-5, Education Complex Pt/Fam, Consent,records obtained, informed consent, Results/Orders obtained and Staff clarify orders Established Patient Charge Established Patient Point Assignment: 95 Established Patient Point Charge: EP Level 3 (80-115) MA Intake Visit Data Collection New Patient or Established: Established Patient [place] [facility] [place] Reason for Visit:: KNEE PAIN Seen by Clinical Staff ONLY (RN/MA): No PCP or OBGYN visit in last 3 months: Yes Hx Now: No Do You Feel Safe at Home: Yes Authorities Contacted: N/A Questionairres Past Medical History Past Medical History Have you ever been diagnosed with any of the following: Neurological Problems Cerebrovascular Accident (CVA): Yes Seizures: Yes () Migraine: No Cardiology Problems Atrial Fibrillation: Yes Hypercholesterolemia: Yes Congestive Heart Failure: No Edema: Yes Hypertension: Yes Respiratory Problems Chronic Obstructive Pulmonary Disease (COPD): No Asthma: Yes Tuberculosis: No Sleep Apnea: Yes Smoking: No Smoking Cessation Counseling: No Smoking Exposure: No Stomache/Intestinal Problems Hemorrhoids: Yes Gastroesophageal Reflux Disease: Yes Obesity: Yes Genital/Urinary Problems Renal Disease: No Musculoskeletal Problems Arthritis: Yes Head,Eye,Nose,Throat Problems Cataracts: Yes Endocrine Problems Diabetes Mellitus Type 1: No Diabetes Mellitus Type 2: No Blood Problems Anemia: No Sickle Cell Disease: No Clotting Problems: No Psychologic Problems Anxiety: Yes Other Problems Falls: No Blood Transfusions: No Blood Transfusion Reaction: No Anesthesia Reactions: No Vancomycin-Resistant Enterococci: Yes Cancer: No Surgical History Hysterectomy: Yes Pacemaker: Yes Subjective Visit Visit for: follow up visit and knee Immunization / Flu Flu Vaccine in the Last 12 Months: No Flu Vaccine Exclusion Criteria: No Exclusion Criteria History of Present Illness Chief complaint: RIGHT KNEE OA Date of injury / onset of symptoms: NOVEMBER 2024/JANUARY 2025 Personal History Occupation: RETIRED Red flag PMH: none BMI Counceling provided: Yes Pain Pain level (0-10): 8 Pain location: anterior Pain quality: dull Pain timing: night, increases with activity and stairs Ambulatory data Ambulatory device: cane Treatments Number of previous injections: 0 Improvement with previous injections: No Improvement with PT: No Improvement with NSAIDS: no Review of Systems Review of Systems: All systems negative unless otherwise noted in HPI.
[2025-08-13 10:52] VITALS: BP 123/84; PULSE 79; RESP 18; TEMP 36.3; O2SAT 91; BMI 41.1
== END 2025-08-13 11:30 | disposition home or self-care (01) ==
LOC: HODSRG 09:44
PROVIDERS: PCP Nurse Practitioner Family; Referring Provider Nurse Practitioner Family; Supervising Provider Orthopaedic Surgery Adult Reconstructive Orthopaedic Surgery; Visit Provider Orthopaedic Surgery Adult Reconstructive Orthopaedic Surgery
DX: M17.0 Bilateral primary osteoarthritis of knee (principal); M25.561 Pain in right knee; M25.562 Pain in left knee; I10 Essential (primary) hypertension; E66.9 Obesity, unspecified; Z68.41 Body mass index [BMI] 40.0-44.9, adult; Z86.73 Personal history of transient ischemic attack (TIA), and cerebral infarction without residual deficits; Z95.0 Presence of cardiac pacemaker
CPT/HCPCS: 99213; G0463

== ENCOUNTER → 2025-08-31 | Outpatient (CLI) | payer MEDICARE, BC, SELFPAY ==
[2025-08-31 08:27] LABS: Basophils # (Auto) 0.0 Thou/mm3 (0.0-0.2); Basophils % (Auto) 1 % (0-2.5); Eosinophils # (Auto) 0.2 Thou/mm3 (0.0-0.5); Eosinophils % (Auto) 3 % (0-10); Hematocrit 44.8 % (36.0-46.0); Hemoglobin 14.2 g/dL (12.0-16.0); Immature Granulocytes Auto 0.02 Thou/mm3 (0.00-0.00); Lymphocytes # (Auto) 0.9 Thou/mm3 (1.0-4.8); Lymphocytes % (Auto) 17 % (10-50); Mean Corpuscular HGB Conc 31.7 g/dl (31.0-37.0); Mean Corpuscular Hemoglobin 29.5 pg (25.0-35.0); Mean Corpuscular Volume 93 fL (80-100); Monocytes # (Auto) 0.4 Thou/mm3 (0.0-0.8); Monocytes % (Auto) 8 % (0-12); Neutrophils # (Auto) 3.7 Thou/mm3 (1.8-7.7); Neutrophils % (Auto) 71 % (37-80); Nucleated Red Blood Cell # 0.00 Thou/mm3 (0.00-0.00); Nucleated Red Blood Cell % 0 /100 WBC (0); Platelet Count 176 Thou/mm3 (140-440); RDW Standard Deviation 47.9 fL (36.4-46.3); Red Blood Count 4.81 Miln/mm3 (4.00-5.20); White Blood Count 5.2 Thou/mm3 (3.6-11.0)
[2025-08-31 08:31] LABS: INR 1.0 (0.9-1.3); Partial Thromboplastin Time 27.2 Seconds (22.0-36.0); Prothrombin Time 10.6 Seconds (9.0-12.2)
[2025-08-31 08:38] LABS: Glucose Estimated Average 128 mg/dL (80-131); Hemoglobin A1C 6.1 % Hgb (4.8-6.0)
[2025-08-31 08:50] LABS: Alanine Aminotransferase 34 U/L (10-49); Albumin, Serum 4.6 gm/dL (3.4-4.8); Albumin/Globulin Ratio 1.5 (1.2-2.2); Alkaline Phosphatase 81 U/L (46-116); Anion Gap 9 (7-16); Aspartate Amino Transferase 29 U/L (0-34); BUN/Creatinine Ratio 14 Ratio (12-20); Bilirubin,Total 0.6 mg/dL (0.3-1.2); Blood Urea Nitrogen 14 mg/dL (9-23); Calcium 9.6 mg/dL (8.3-10.6); Calcium (Corrected) 9.6 mg/dL (8.5-10.1); Carbon Dioxide 31.9 mMol/L (20.0-31.0); Chloride 105 mMol/L (98-107); Creatinine (Component) 1.0 mg/dL (0.6-1.3); Free T3 2.8 pg/mL (2.3-4.2); Free T4 (Free Thyroxine) 1.36 ng/dL (0.89-1.76); Globulin 3.0 gm/dL (2.3-3.5); Glucose 104 mg/dL (74-106); Osmolality,Calculated 291 (275-295); Potassium 3.7 mMol/L (3.4-5.1); Sodium 146 mMol/L (136-145); Thyroid Stimulating Hormone 4.21 uIU/mL (0.55-4.78); Total Protein 7.6 gm/dL (5.7-8.2); eGFR 57 See Note
== END | disposition home or self-care (01) ==
LOC: COPL 06:43
PROVIDERS: PCP Family Medicine; Referring Provider Student in an Organized Health Care Education/Training Program; Visit Provider Student in an Organized Health Care Education/Training Program
DX: Z01.818 Encounter for other preprocedural examination (principal)
CPT/HCPCS: 36415; 80053; 83036; 84439; 84443; 84481; 85025; 85610; 85730

== ENCOUNTER 2025-09-09 10:03 | Outpatient (AMB) | payer MEDICARE, BC, SELFPAY ==
[2025-09-09 10:35] VITALS: BP 119/75; PULSE 78; RESP 18; TEMP 36.3; O2SAT 92; BMI 41.3
--- NOTE | 2025-09-09 10:35 | ORTHONT_ITS ---
Vital signs 09/09/25 10:35 Height 1.63 m Height Method Stated Weight 109.854 kg Weight Measurement Method Standing Scale BMI 41.3 BP 119/75 Blood Pressure Source Automatic Cuff Blood Pressure Location Left Upper Arm Position Sitting Respiration 18 Pulse 78 Pulse Source Monitor Temp 97.3 F Temp Source Temporal Artery Scan Pulse Oximetry (%) 92 L Oxygen Delivery Method Room Air Med/Allergies Allergies & Medications Allergies erythromycin base Allergy (Severe, Verified 09/09/25 10:36) Rash penicillin G benzathine (From Bicillin C-R) Allergy (Severe, Verified 09/09/25 10:36) Hives penicillin G procaine (From Bicillin C-R) Allergy (Severe, Verified 09/09/25 10:36) Hives Penicillins Allergy (Severe, Verified 09/09/25 10:36) Rash, Swelling, Difficulty breathing perfume Allergy (Severe, Verified 09/09/25 10:36) Difficulty Breathing aspirin Adverse Reaction (Severe, Verified 09/09/25 10:36) Rash doxycycline Adverse Reaction (Severe, Verified 09/09/25 10:36) Rash naproxen Adverse Reaction (Severe, Verified 09/09/25 10:36) Rash tetracycline Adverse Reaction (Severe, Verified 09/09/25 10:36) Rash Medication Reconciliation albuterol sulfate 90 mcg/actuation aerosol inhaler (ProAir HFA) 2 puff inhalation QID PRN Respiratory Distress ##0 10/26/13 [History Confirmed 09/09/25] montelukast 10 mg tablet (Singulair) 10 mg feeding tube QDAY Allergies #0 tabs 10/26/13 [History Confirmed 09/09/25] amiodarone 200 mg tablet 200 mg PO BID #60 tabs 12/21/19 [Rx Confirmed 09/09/25] pantoprazole 40 mg tablet,delayed release 40 mg PO QDAY #30 tabs 12/21/19 [Rx Confirmed 09/09/25] apixaban 2.5 mg tablet (Eliquis) 2.5 mg feeding tube BID 01/03/20 [History Confirmed 09/09/25] Held on 03/14/24. Instructions: Resume on 03/16/24. atorvastatin 40 mg tablet 40 mg PO QPM 10/09/21 [History Confirmed 09/09/25] fluticasone 100 mcg-salmeterol 50 mcg/dose blistr powdr for inhalation (Piero Elizaldeub) 1 ea inhalation BID 05/02/22 [History Confirmed 09/09/25] nifedipine 30 mg tablet,extended release 1 tab PO BID 05/02/22 [History Confirmed 09/09/25] potassium chloride 10 mEq tablet,extended release (Klor-Con) 1 tab PO QDAY 05/02/22 [History Confirmed 09/09/25] bumetanide 1 mg tablet 1 mg PO BID 10/14/23 [History Confirmed 09/09/25] Exam Exam Breathing is nonlabored. Patient has a normal mood and affect. Bilateral extremities were evaluated and demonstrates sensation intact to light touch. Palpable pedal pulses are present. No significant edema is present. Bilateral hips were examined. The patient has no pain with log roll of the hips. Internal rotation to 30 degrees and external rotation to 30 degrees is painless. Negative FADIR. Left knee was examined today. The left knee is in reasonable alignment. Range of motion from 0-120 degrees. Knee is stable to varus and valgus as well as AP translation with <5mm. Patient has a negative McMurrays. There is no pain with patellofemoral compression and no crepitus noted. The knee is nontender to palpation. The right knee was also examined. The right knee is in varus alignment. Range of motion from 0-115 degrees. Knee is stable to varus and valgus as well as AP translation with <5mm. Patient has a negative McMurrays. There is no pain with patellofemoral compression and no crepitus noted. The knee is tender to palpation medially. X-rays demonstrate complete obliteration of the medial and lateral joint space of the right knee Assessment and Plan Problem List (1) Degenerative arthritis of knee, bilateral: Status: Acute Plan: Patient is a pleasant 79-year-old female with bilateral knee pain and bilateral knee arthritis. We discussed different treatment options. I would recommend a total knee replacement as a surgical option. The nature and purpose of the total knee replacement, alternative method(s) of treatment, the material risks involved, and the possibility of complications were fully explained to the patient. The patient does NOT have any of the follow ing contraindications to TKA: - Active infection of the knee joint, OR - Active systemic bacteremia, OR - Active skin infection or open wound at surgical site, OR - Neuropathic arthritis, OR - Severe, rapidly progressive neurological disease, OR - Severe medical condition that makes risks of surgery outweigh the potential benefit. ?The patient was told the most common risks and complications associated with a total knee replacement include, but are not limited to: blood clots in the leg, stiffness, fatal pulmonary embolism, dislocation of the prosthesis, intrao perative and postoperative fractures of the femur or tibia, infection, failure of the prosthesis or grafting materials, complications from anesthesia, reactions to blood transfusions, postoperative leg length inequality, instability of the knee replacement, nerve damage or injury, vascular injury, delayed wound healing, infection, other injury or even . In addition, there are risks associated with anesthesia given during this operation. Also, the patient was told that after undergoing a total knee replacement there may still be persistent pain or disability. The patient was informed that the success of this operation in part depends upon the mechanical devices which are going to be implanted and that these devices can fail or malfunction, and may need to be repaired or replaced and there are no guarantees as to the longevity of this device or its parts and that it or its parts could fail prematurely. The importance of compliance with physical therapy was also discussed with the federico reynaga. The patient was also notified that during the course of surgery, there may be a need to use bone graft from donors, and that any bone graft used will be carefully screened for communicable diseases, including AIDS, hepatitis, Jeison-Creutzfeldt, or other diseases, but despite the screening procedures, there is a small chance that they could contract one of these diseases. Finally, the patient was asked to follow completely and fully with all advice and recommended treatments, and that recovery and ultimate outcome are affected by their compliance with recommended treatment. We discussed the risks, benefits and treatment alternatives, and the patient is interested in proceeding with surgery. We will try to set this up as expeditiously as possible. Advanced Care Planning Discussion Advance care planning discussed with:: patient Office Procedures GNS Level of Care Nursing/Assessment Patient Status: Established Patient Nursing Assessment/Reassesment: Medication Reconciliation, Update PMH in EMR and Vital Signs Coordination of Care: Complex Care and Chronic Disease 1-5, Education Complex Pt/Fam, Consent,records obtained, informed consent, Results/Orders obtained and Staff clarify orders Established Patient Charge Established Patient Point Assignment: 95 Established Patient Point Charge: EP Level 3 (80-115) MA Intake Visit Data Collection New Patient or Established: Established Patient (seen at [facility] within 3 years) Reason for Visit:: PRE OP R TKA Seen by Clinical Staff ONLY (RN/MA): No PCP or OBGYN visit in last 3 months: Yes Hx Now: No Do You Feel Safe at Home: Yes Authorities Contacted: N/A Questionairres Past Medical History Past Medical History Have you ever been diagnosed with any of the following: Neurological Problems Cerebrovascular Accident (CVA): Yes Seizures: Yes () Migraine: No Cardiology Problems Atrial Fibrillation: Yes Hypercholesterolemia: Yes Congestive Heart Failure: No Edema: Yes Hypertension: Yes Respiratory Problems Chronic Obstructive Pulmonary Disease (COPD): No Asthma: Yes Tuberculosis: No Sleep Apnea: Yes Smoking: No Smoking Cessation Counseling: No Smoking Exposure: No Stomache/Intestinal Problems Hemorrhoids: Yes Gastroesophageal Reflux Disease: Yes Obesity: Yes Genital/Urinary Problems Renal Disease: No Musculoskeletal Problems Arthritis: Yes Head,Eye,Nose,Throat Problems Cataracts: Yes Endocrine Problems Diabetes Mellitus Type 1: No Diabetes Mellitus Type 2: No Blood Problems Anemia: No Sickle Cell Disease: No Clotting Problems: No Psychologic Problems Anxiety: Yes Other Problems Falls: No Blood Transfusions: No Blood Transfusion Reaction: No Anesthesia Reactions: No Vancomycin-Resistant Enterococci: Yes Cancer: No Surgical History Hysterectomy: Yes Pacemaker: Yes Subjective Visit Visit for: follow up visit and knee Immunization / Flu Flu Vaccine in the Last 12 Months: No Flu Vaccine Exclusion Criteria: No Exclusion Criteria History of Present Illness Chief complaint: PRE OP R TKA Date of injury / onset of symptoms: NOVEMBER 2024/JANUARY 2025 Patient Is a pleasant 79-year-old female with right knee pain and right knee arthritis. Has [id number] arthritis. She has not had any injections like cortisone injection right knee today. She was told she needed a knee replacement. She had a prior stroke and had a PEG tube. This was never removed. The injection did not work for very long. It worked for less than 3 months. Her GI doctor recommended that we do the surgery without removing the PEG as it would be very difficult for her to get another one She has a pacemake and lives alone. She is on eliquis as well. Personal History Occupation: RETIRED Red flag PMH: none BMI Counceling provided: Yes Additional comments: PATIENT HAS OWN WALKER Pain Pain level (0-10): 8 Pain location: anterior Pain quality: dull Pain timing: night, increases with activity and stairs Ambulatory data Ambulatory device: cane Treatments Number of previous injections: 0 Improvement with previous injections: No Improvement with PT: No Improvement with NSAIDS: no Review of Systems Review of Systems: All systems negative unless otherwise noted in HPI.
== END 2025-09-09 10:45 | disposition home or self-care (01) ==
LOC: HODSRG 10:03
PROVIDERS: PCP Nurse Practitioner Family; Referring Provider Nurse Practitioner Family; Supervising Provider Orthopaedic Surgery Adult Reconstructive Orthopaedic Surgery; Visit Provider Orthopaedic Surgery Adult Reconstructive Orthopaedic Surgery
DX: M17.0 Bilateral primary osteoarthritis of knee (principal); M25.562 Pain in left knee; M25.561 Pain in right knee; Z95.0 Presence of cardiac pacemaker; I10 Essential (primary) hypertension; E66.9 Obesity, unspecified; Z68.41 Body mass index [BMI] 40.0-44.9, adult
CPT/HCPCS: 99213; G0463

== ENCOUNTER → 2025-09-09 | Outpatient (CLI) | payer MEDICARE, BC, SELFPAY ==
--- NOTE | 2025-09-09 11:48 | XR_ITS ---
Examination: CT right lower extremity, without contrast. 2-D sagittal reconstructions. 2-D coronal reconstructions. 3-D reconstructions. Date and time of exam: September 09, 2025, 1154 hours INDICATIONS: Right knee pain beginning 1 year ago, diagnosis primary unilateral osteoarthritis right knee CTDI: vol (mGy): 16.2 DLP: (mGycm): 1177 Technique: Multiple 1.25 mm axial sections of the right lower extremity without intravenous contrast have been obtained. 2-D sagittal and coronal reconstructions have been obtained. 3-D reconstructions have been obtained. Low dose protocols were performed. One or more of the following dose reduction techniques were used; automated exposure control, adjustment of the mA and/or KV according to patient size, use of iterative reconstruction technique. Findings: Severe osteopenia Moderate narrowing right hip joint No right hip fracture or dislocation Severe right knee tricompartment osteoarthritis, severe narrowing medial lateral and patellofemoral joints No fractures IMPRESSION: Severe right knee tricompartment osteoarthritis
== END | disposition home or self-care (01) ==
PROVIDERS: PCP Family Medicine; Referring Provider Orthopaedic Surgery Adult Reconstructive Orthopaedic Surgery; Visit Provider Orthopaedic Surgery Adult Reconstructive Orthopaedic Surgery
DX: M17.11 Unilateral primary osteoarthritis, right knee (principal)
CPT/HCPCS: 73700

== ENCOUNTER 2025-09-19 10:20 | Emergency (ER) | payer MEDICARE, BC, SELFPAY ==
[2025-09-19 12:04] VITALS: BP 157/86; PULSE 67; RESP 18; TEMP 36.6; O2SAT 94; BMI 38.5
--- NOTE | 2025-09-19 12:12 | XR_ITS ---
EXAMINATION: PA chest single view Triveen-One upright PA chest single view Date and time: September 19, 2025, 12:22 p.m., comparison May 10, 2025 INDICATIONS: Shortness of breath today. FINDINGS: Mild prominence left ventricle Prominent vascular congestion Suspicious for early septal edema at the lung bases Cardiac leads satisfactory position IMPRESSION: Suspicious for early heart failure
--- NOTE | 2025-09-19 12:12 | EKG_ITS ---
[facility] Test Date: 2025-09-19 Pat Name: JOSSELYN MARSHALL Department: Room: - Gender: Female [employer]ic: : 1945 Requested By: Ronna Hawley Order Number: [id number] Reading MD: Ronna Hawley Measurements Intervals [place] Rate: 66 P: 109 CT: 198 QRS: -40 QRSD: 112 T: 46 QT: 455 QTc: 477 Interpretive Statements ELECTRONIC ATRIAL PACEMAKER LEFT AXIS DEVIATION [QRS AXIS < -30] LOW QRS VOLTAGE IN PRECORDIAL LEADS [QRS DEFLECTION < 1.0 mV IN CHEST LEADS] PATTERN CONSISTENT WITH PULMONARY DISEASE MODERATE INTRAVENTRICULAR CONDUCTION DELAY [110+ ms QRS DURATION] VOLTAGE CRITERIA FOR LVH [MEETS CRITERIA IN ONE OF: R(aVL), S(V1), R(V5), R(V5/V6)+S(V1)] Compared to ECG 09/08/2024 11:26:31 Intraventricular conduction delay now present T-wave abnormality no longer present /store/S0/[id number].pdf
--- NOTE | 2025-09-19 12:14 | PD.EDRME ---
Rapid Medical Screening Exam E Arrival date/time: 09/19/25 10:20 This is a 80-year-old female that comes into the emergency room with multiple complaints. Patient states that over the past few days she has been more short of breath than she usually is. Patient reports that she recently had some medications changed by Dr. Montague and she has not been able to fill. Patient states that the doctor's office was also closed. Patient reports that over the past few weeks her legs have been swollen however over the past few days they are increasingly more swollen and her left leg is now weeping fluid. Patient states she has a hard time even putting pants. Patient denies chest pain. Patient denies any history of HTN, asthma/COPD, paroxysmal A-fib on Eliquis, history of pacemaker placement, history of CVA. I have greeted and performed a focused initial assessment of this patient. Initial appropriate labs ordered at this time. A comprehensive ED assessment and evaluation of the patient and analysis of all test and completion of medical decision making process will be conducted by additional ED provider. Chief Complaint: Extremity Injury, Lower Time Seen by Provider: 09/19/25 10:33 Vital signs: Vital Signs Temperature 97.9 F 09/19/25 12:04 Pulse Rate 67 09/19/25 12:04 Respiratory Rate 18 09/19/25 12:04 Blood Pressure 157/86 H 09/19/25 12:04 Pulse Oximetry (%) 94 L 09/19/25 12:04 Oxygen Delivery Method Room Air 09/19/25 12:04 Exam: Alert and oriented, breathing even and unlabored, skin warm and dry Clinical Impression: Bilateral lower leg swelling shortness of breath
[2025-09-19 13:49] LABS: Basophils # (Auto) 0.0 Thou/mm3 (0.0-0.2); Basophils % (Auto) 1 % (0-2.5); Eosinophils # (Auto) 0.1 Thou/mm3 (0.0-0.5); Eosinophils % (Auto) 2 % (0-10); Hematocrit 45.2 % (36.0-46.0); Hemoglobin 14.4 g/dL (12.0-16.0); Immature Granulocytes Auto 0.02 Thou/mm3 (0.00-0.00); Lymphocytes # (Auto) 0.9 Thou/mm3 (1.0-4.8); Lymphocytes % (Auto) 19 % (10-50); Mean Corpuscular HGB Conc 31.9 g/dl (31.0-37.0); Mean Corpuscular Hemoglobin 29.5 pg (25.0-35.0); Mean Corpuscular Volume 93 fL (80-100); Monocytes # (Auto) 0.4 Thou/mm3 (0.0-0.8); Monocytes % (Auto) 8 % (0-12); Neutrophils # (Auto) 3.3 Thou/mm3 (1.8-7.7); Neutrophils % (Auto) 71 % (37-80); Nucleated Red Blood Cell # 0.00 Thou/mm3 (0.00-0.00); Nucleated Red Blood Cell % 0 /100 WBC (0); Platelet Count 166 Thou/mm3 (140-440); RDW Standard Deviation 47.8 fL (36.4-46.3); Red Blood Count 4.88 Miln/mm3 (4.00-5.20); White Blood Count 4.7 Thou/mm3 (3.6-11.0)
[2025-09-19 14:11] LABS: Alanine Aminotransferase 30 U/L (10-49); Albumin, Serum 4.7 gm/dL (3.4-4.8); Albumin/Globulin Ratio 1.6 (1.2-2.2); Alkaline Phosphatase 81 U/L (46-116); Anion Gap 11 (7-16); Aspartate Amino Transferase 30 U/L (0-34); BUN/Creatinine Ratio 11 Ratio (12-20); Bilirubin,Total 0.9 mg/dL (0.3-1.2); Blood Urea Nitrogen 11 mg/dL (9-23); Calcium 9.2 mg/dL (8.3-10.6); Calcium (Corrected) 9.2 mg/dL (8.5-10.1); Carbon Dioxide 31.9 mMol/L (20.0-31.0); Chloride 103 mMol/L (98-107); Creatinine (Component) 1.0 mg/dL (0.6-1.3); Estimated Creatinine Clearance 56.8 mL/min (>60); Globulin 2.9 gm/dL (2.3-3.5); Glucose 103 mg/dL (74-106); Osmolality,Calculated 289 (275-295); Potassium 3.8 mMol/L (3.4-5.1); Sodium 146 mMol/L (136-145); Total Protein 7.6 gm/dL (5.7-8.2); Troponin I < 0.020 ng/mL (0.0-0.045); eGFR 57 See Note
[2025-09-19 14:34] VITALS: BP 156/91; PULSE 67; RESP 18; TEMP 36.8; O2SAT 97
[2025-09-19 14:40] LABS: B-Type Natriuretic Peptide 68 pg/mL (0-100)
--- NOTE | 2025-09-19 15:11 | EDNOTE_ITS ---
Lower Extremity Injury RME/HPI General Chief Complaint: Extremity Injury, Lower Stated Complaint: left leg swollen, weeping, High BP Time Seen by Provider: 09/19/25 10:33 Arrival date/time: 09/19/25 10:20 80-year-old female patient with history of A-fib, CVA, lower leg swelling, currently taking Bumex, prescribed by consultant internship, was brought in by family for evaluation regarding leaking fluid on the bilateral lower left leg. Has been ongoing for the last few days. Severity of symptoms mild. Denies any shortness of breath denies any cough denies any orthopnea denies any patient exertion. Denies any fever. No medication was taken prior to ER visit. Patient is ambulatory. RME / HPI RME / HPI Narrative: 09/19/25 10:20 This is a 80-year-old female that comes into the emergency room with multiple complaints. Patient states that over the past few days she has been more short of breath than she usually is. Patient reports that she recently had some medications changed by Dr. Montague and she has not been able to fill. Patient states that the doctor's office was also closed. Patient reports that over the past few weeks her legs have been swollen however over the past few days they are increasingly more swollen and her left leg is now weeping fluid. Patient states she has a hard time even putting pants. Patient denies chest pain. Patient denies any history of HTN, asthma/COPD, paroxysmal A-fib on Eliquis, history of pacemaker placement, history of CVA. I have greeted and performed a focused initial assessment of this patient. Initial appropriate labs ordered at this time. A comprehensive ED assessment a nd evaluation of the patient and analysis of all test and completion of medical decision making process will be conducted by additional ED provider. Exam: Alert and oriented, breathing even and unlabored, skin warm and dry Impression: Bilateral lower leg swelling shortness of breath Related Data Home Medications ?Medication ?Instructions ?Recorded ?Confirmed albuterol sulfate 90 mcg/actuation 2 puff inhalation Q ID PRN 10/26/13 09/09/25 aerosol inhaler (ProAir HFA) Respiratory Distress ##0 montelukast 10 mg tablet 10 mg feeding tube QDAY Srinivasa rgies 10/26/13 09/09/25 (Singulair) #0 tabs apixaban 2.5 mg tablet (Eliquis) 2.5 mg feeding tube B ID 01/03/20 09/09/25 Held on 03/14/24. Instructions: Resume on 03/16/24. atorvastatin 40 mg tablet 40 mg PO QPM 10/09/21 fluticasone 100 mcg-salmeterol 50 1 ea inhalation BID 05/02/22 09/09/25 mcg/dose blistr powdr for inhalation (Modestaela Inhub) nifedipine 30 mg tablet,extended 1 tab PO BID 05/02/22 09/09/25 release potassium chloride 10 mEq 1 tab PO QDAY 05/02/2209/09 tablet,extended release (Klor-Con) bumetanide 1 mg tablet 1 mg PO BID 10/14/23 5 Previous Rx's ?Medication ?Instructions ?Recorded amiodarone 200 mg tablet 200 mg PO BID #60 tabs 12/20 pantoprazole 40 mg tablet,delayed 40 mg PO QDAY #30 ta bs 12/21/19 release Allergies Allergy/AdvReac Type Severity Reaction Status Date / Time erythromycin base Allergy Severe Rash Verified 09/19/25 10:27 penicillin G benzathine Allergy Severe Hives Verified 09/19/25 10:27 (From Bicillin C-R) penicillin G procaine (From Allergy Severe Hives Verified 09/19/25 10:27 Bicillin C-R) Penicillins Allergy Severe Rash, Verified 09/19/25 10:27 Swelling, Difficulty breathing perfume Allergy Severe Difficulty Verified 09/19/25 10:27 Breathing aspirin AdvReac Severe Rash Verified 09/19/25 10:27 doxycycline AdvReac Severe Rash Verified 09/19/25 10:27 naproxen AdvReac Severe Rash Verified 09/19/25 10:27 tetracycline AdvReac Severe Rash Verified 09/19/25 10:27 Review of Systems Review of Systems Narrative Review of Systems: Review of system reviewed and within normal limits except mentioned in HPI ED Exam Narrative Physical exam: VITAL SIGNS: Reviewed. GENERAL APPEARANCE: Alert and interactive, follows commands, no acute distress, HEAD AND FACE: Non-traumatic. ENT: PERRL, pink conjunctivitis, eyelid no trauma, Mucous membrane moist. NECK: Supple, nontender, no nuchal rigidity. CHEST: No tenderness, no crepitus, no paradoxical movement, no retractions. LUNGS: Clear, well ventilated, symmetric, no rales, no wheezing, no ronchi, no stridor, good breath sounds bilaterally. HEART: Regular rate, regular rhythm, no murmur, no gallops. ABDOMEN: Soft, positive bowel sounds, nondistended, no guarding, nontender, no rebound, no masses, RECTAL: Deferred. GENITAL: Deferred. NEUROLOGICAL: Gross motor function intact sensory function intact, Appropriate for age. MUSCULOSKELETAL: low back nontender, full range of motion. EXTREMITIES: Bilateral lower extremity +2 edema, no redness mild weeping noted, nontender, full range of motion. Distal neurovascular status intact. SKIN: Color pink, dry, no rash, no lacerations, no abrasions, no contusions. LYMPHATICS: Deferred. Course Quality Measures none Orders Category Date Time Status EKG (ED ONLY) *Do not use* NOW Care 09/19/25 12:12 Completed EKG (ED Only) Stat Exams 09/19/25 12:12 Draft XR chest 1V Stat Exams 09/19/25 12:12 Completed BNP [B-Type Natriuretic Peptide] Stat Lab 09/19/25 13:29 Completed CBC Stat Lab 09/19/25 13:29 Completed Comprehensive Metabolic Panel Stat Lab 09/19/25 13:29 Completed Troponin I Stat Lab 09/19/25 13:29 Completed Vital Signs Vital signs: Vital Signs Temperature 97.9 F 09/19/25 12:04 Pulse Rate 67 09/19/25 12:04 Respiratory Rate 18 09/19/25 12:04 Blood Pressure 157/86 H 09/19/25 12:04 Pulse Oximetry (%) 94 L 09/19/25 12:04 Oxygen Delivery Method Room Air 09/19/25 12:04 Extremity Injury, Lower MDM Narrative MDM Narrative:: 80-year-old female patient with history of A-fib, CVA, lower leg swelling, currently taking Bumex, prescribed by consultant internship, was brought in by family for evaluation regarding leaking fluid on the bilateral lower left leg. Has been ongoing for the last few days. Severity of symptoms mild. Denies any shortness of breath denies any cough denies any orthopnea denies any patient exertion. Denies any fever. No medication was taken prior to ER visit. Patient is ambulatory. Patient's CBC showed no leukocytosis. Patient's creatinine was noted to be normal. EKG showed paced rhythm, ventricular rate of 66 bpm, no ST segment ovation depression noted. Chest x-ray showed mild congestive heart failure. Currently patient was noted to be satting 95% room air. Patient stable for discharge home. Patient was advised to follow-up with PCP and consultant internship next week. Patient agrees with the plan Patient data External records reviewed:: None Clinical information provided by:: patient Social determinants that could affect healthcare access:: none Patient has the following chronic illnesses:: History of chronic A-fib CVA, lower leg swelling, hypertension How is presenting disease/condition affected by chronic disease/condition?: exacerbated by Evaluation data The following diagnostics were reviewed and interpreted by me:: lab results, radiology exam(s) and EKG tracing(s) Lab and/or radiology exams considered but not ordered:: None Interpretation Summary: See above Medications / Prescriptions Medications or Prescriptions considered but not ordered:: None Medication administrations:: None Consultations Consultation(s) initiated? (list below): No Consultation #1 (Physician, Specialty, Details): Plan Diagnosis Extremity Injury, Lower Differential Diagnosis: other (Lower leg swelling, weeping lower leg, cellulitis) Most likely diagnosis given after review of the tests above:: Lower leg swelling, Admission Indicated Admission indicated?: not indicated Admission Request Was there a request for admission?: No Disposition Plan Disposition Plan: Discharge Discharge Attestation Discharge Attestation: The patient was given an opportunity to ask questions and understood the discharge instructions. Discharge instructions specifically effects, ind ications for sooner follow up or return to the emergency department, and the expected course of current diagnosis. Patient condition: Stable Discharge Plan Plan Patient Disposition: HOME (Self Care) Discharge Disposition comment: Stable Prescriptions/Referrals Prescriptions/Med Rec: No Action montelukast [Singulair] 10 MG tablet 10 mg feeding tube QDAY Qty: 0 albuterol sulfate [ProAir HFA] 8.5 GM HFA aerosol inhaler 2 puff inhalation QID PRN (Reason: Respiratory Distress) Qty: 0 amiodarone 200 mg Tablet 200 mg PO BID Qty: 60 0RF pantoprazole 40 mg tablet,delayed release (DR/EC) 40 mg PO QDAY Qty: 30 0RF Eliquis 2.5 mg tablet 2.5 mg feeding tube BID atorvastatin 40 mg tablet 40 mg PO QPM potassium chloride [Klor-Con 10] 10 mEq tablet extended release 1 tab PO QDAY Patient Comments: TAKE 1 TABLET BY MOUTH EVERY DAY DIRECTED nifedipine 30 mg tablet extended release 1 tab PO BID Patient Comments: TAKE ONE TABLET BY MOUTH TWO TIMES A DAY ON AN EMPTY STOMACH (DISCONTINUE ONCE A DAY) fluticasone propion-salmeterol [Wixela Inhub] 100-50 mcg/dose blister with device 1 ea INHALATION BID Patient Comments: INHALE 1 PUFF BY MOUTH TWICE A DAY bumetanide 1 mg tablet 1 mg PO BID Patient Comments: TAKE 1 TABLET BY MOUTH TWICE A DAY Referrals: Simone Rivera MD [Primary Care Provider] - In 1 week Problem List Clinical Impression: Bilateral edema of lower extremity Patient/Caregiver Discharge Instructions Discharge Activity: activity as tolerated Education Materials: Taking a Diuretic Additional Instructions: Thank you for the opportunity for serving you today. You are stable for discharged . You are advised to: Follow-up with your PCP in 1 to 2 days Return to ED for worsening of symptoms Take medication as prescribed by your consultant internship Elevate your leg as needed You wear PETER hose/compression stocking in the morning and remove it during the night Print Language: Yakut Stand Alone Forms: Yana Award Info., Patient Portal Info Letter
[2025-09-19 15:49] VITALS: BP 156/98; PULSE 69
[2025-09-19 15:53] VITALS: BP 156/98; PULSE 69; RESP 16; TEMP 36.9; O2SAT 97
== END 2025-09-19 15:54 | disposition home or self-care (01) ==
PROVIDERS: Emergency Provider Nurse Practitioner Family; PCP Student in an Organized Health Care Education/Training Program
DX: R60.0 Localized edema (principal); R06.02 Shortness of breath; I48.20 Chronic atrial fibrillation, unspecified; Z79.01 Long term (current) use of anticoagulants
CPT/HCPCS: 36415; 71045; 80053; 83880; 84484; 85025; 93005; 99283; A9270